=== PATIENT | male | born 1970 | race Caucasian/White ===

== ENCOUNTER 2023-12-15 07:08 | Emergency (ER) | payer OTHER ==
[~2023-12-15] VITALS: Ht 172.7 cm; Wt 81.6 kg
[2023-12-15 07:43] VITALS: BP 135/72; TEMP 98.4; O2SAT 98
== END 2023-12-15 08:25 | disposition home or self-care (01) ==
LOC: ER 07:08
DX: H53.8 Other visual disturbances (principal)